=== PATIENT | male | born 2000 | race African-American/Black ===

== ENCOUNTER 2021-02-14 21:39 | Emergency (ER) | payer OTHER ==
[~2021-02-14] VITALS: Ht 182.9 cm; Wt 83.3 kg
--- NOTE | 2021-02-14 22:06 | PHYS DOC ---
Past History Past Surgical History: No Surgical History (PEDRO TOWNSEND APRN) Alcohol Use: None (PEDRO TOWNSEND APRN) General Adult EDM: Chief Complaint: CHEST PAIN HPI: HPI: Patient is a 20-year-old male who presents to the emergency department for chest tightness. Patient reports that he was laying on his back doing a hamstring exercise and when he felt a pulling in his chest with shortness of breath. He states that he had his friend stretch his arms out and his symptoms improved. Patient rates his pain 6 out of 10. It is located midsternally. It is worse with movement. It is reproducible. Patient is also reporting shortness of breath. No treatment prior to arrival. No history. No medications at home. No known allergies. Patient denies nausea, vomiting, fever, dizziness. (PEDRO TOWNSEND APRN) Review of Systems: Review of Systems: 14 body systems of the review of systems have been reviewed. See HPI for pertinent positive and negative responses, otherwise all other systems are negative, nonpertinent or noncontributory (PEDRO TOWNSEND APRN) Allergies: Allergies: Allergies Coded Allergies Type Severity Reaction Last Updated Verified No Known Drug Allergies 02/14/21 No (PEDRO TOWNSEND APRN) Physical Exam: PE: Constitutional: Well developed, well nourished, no acute distress, non-toxic appearance. [] HENT: Normocephalic, atraumatic, bilateral external ears normal, oropharynx mo ist, no oral exudates, nose normal. [] Eyes: PERRL, EOMI, conjunctiva normal, no discharge. [] Neck: Normal range of motion, no stridor Cardiovascular:Heart rate regular rhythm, no murmur, midsternal chest pain that is reproducible [] Lungs & Thorax: Bilateral breath sounds clear to auscultation [] Abdomen: Bowel sounds normal, soft, no tenderness, no masses, no pulsatile masses. [] Skin: Warm, dry, no erythema, no rash. [] Back: Normal range of motion Extremities: No tenderness, no cyanosis, no clubbing, ROM intact, no edema. [] Neurologic: Alert and oriented X 3, normal motor function, normal sensory function, no focal deficits noted. [] Psychologic: Affect normal, judgement normal, mood normal. [] (PEDRO TOWNSEND APRN) Current Patient Data: Labs: Laboratory Tests Test 02/14/21 22:07 White Blood Count 5.1 x10^3/uL Red Blood Count 4.81 x10^6/uL Hemoglobin 14.4 g/dL Hematocrit 43.2 % Mean Corpuscular Volume 90 fL Mean Corpuscular Hemoglobin 30 pg Mean Corpuscular Hemoglobin Concent 33 g/dL Red Cell Distribution Width 14.0 % Platelet Count 201 x10^3/uL Neutrophils (%) (Auto) 47 % Lymphocytes (%) (Auto) 37 % Monocytes (%) (Auto) 13 % Eosinophils (%) (Auto) 3 % Basophils (%) (Auto) 0 % Neutrophils # (Auto) 2.4 x10^3uL Lymphocytes # (Auto) 1.9 x10^3/uL Monocytes # (Auto) 0.7 x10^3/uL Eosinophils # (Auto) 0.1 x10^3/uL Basophils # (Auto) 0.0 x10^3/uL Sodium Level 143 mmol/L Potassium Level 3.3 mmol/L Chloride Level 105 mmol/L Carbon Dioxide Level 28 mmol/L Anion Gap 10 Blood Urea Nitrogen 11 mg/dL Creatinine 1.3 mg/dL Estimated GFR (Cockcroft-Gault) 86.0 BUN/Creatinine Ratio 8 Glucose Level 88 mg/dL Calcium Level 8.8 mg/dL Total Bilirubin 0.3 mg/dL Aspartate Amino Transf (AST/SGOT) 40 U/L Alanine Aminotransferase (ALT/SGPT) 31 U/L Alkaline Phosphatase 138 U/L Troponin I Quantitative < 0.017 ng/mL Total Protein 6.9 g/dL Albumin 3.8 g/dL Albumin/Globulin Ratio 1.2 Current Medications Medications (Trade) Dose Ordered Sig/Destinee Route PRN Reason Start Time Stop Time Status Last Admin Dose Admin Ketorolac Tromethamine (Toradol 15mg Vial) 15 mg 1X ONCE IVP 02/14/21 22:15 02/14/21 22:18 DC 02/14/21 22:30 Vital Signs: Vital Signs Date Time Temp Pulse Resp B/P (MAP) Pulse Ox O2 Delivery O2 Flow Rate FiO2 02/14/21 21:55 98.5 59 14 143/63 (89) 100 Room Air (PEDRO TOWNSEND APRN) EKG: EKG: EKG performed by ER staff at 2153 shows sinus rhythm with a heart rate of 57, no STEMI read by Dr. Heller at 2205 [] (PEDRO TOWNSEND APRN) Radiology/Procedures: Radiology/Procedures: []REASON: cp PROCEDURE: CHEST AP ONLY XR CHEST 1V History: Reason: cp / Spl. Instructions: / History: Comparison: None. Findings: No consolidation or pleural effusion. Normal heart size. No pneumothorax. Impression: 1. No acute cardiopulmonary process. Electronically signed by: Keon Herrmann DO (02/14/2021 11:09 PM) [facility] DICTATED AND SIGNED BY: KEON HERRMANN DO DATE: 02/14/212308 CC: EMERGENCY,DEPARTMENT; PEDRO TOWNSEND APRN; PCP,NO ~MTH0 0 (PEDRO TOWNSEND APRN) Heart Score: C/O Chest Pain: Yes HEART Score for Chest Pain: HEART Score for Chest Pain Response (Comments) Value History Slighlty/Non-Suspicious 0 ECG Normal 0 Age < 45 0 Risk Factors No Risk Factors 0 Troponin < Normal Limit 0 Total 0 Risk Factors: Risk Factors: DM, Current or recent (<one month) smoker, HTN, HLP, family hist ory of CAD, obesity. Risk Scores: Score 0 - 3: 2.5% MACE over next 6 weeks - Discharge Home Score 4 - 6: 20.3% MACE over next 6 weeks - Admit for Clinical Observation Score 7 - 10: 72.7% MACE over next 6 weeks - Early Invasive Strategies (PEDRO TOWNSEND APRN) Course & Med Decision Making: Course & Med Decision Making Pertinent Labs and Imaging studies reviewed. (See chart for details) [] Patient presents with midsternal chest tightness that is reproducible and worse with movement that occurred while working out today. Blood work, EKG and chest x-ray performed in the ER to rule out a cardiac cause for his chest pain. Patient's heart score is 0. Patient CBC is unremarkable. CXR negative for acute findings as read by this V[employer] B[employer]LE ASSEMBLER and physician. Patient was noted to have hypokalemia and this was replaced in the emergency department. Patient advised to increase his potassium intake at home by eating green leafy vegetables and bananas. Patient advised to take Tylenol or ibuprofen for his chest pain at home. Is likely that this is chest wall pain as it is worse with movement and reproducible and worse after working out today. Patient advised to follow-up with his primary care provider. I discussed with patient all findings and diagnostic testing as well as the need to follow-up with PCP for further evaluation and treatment or return to the ER if any new or worsening symptoms. Strict return precautions were also discussed at length. Patient voiced understanding and agreement with the plan. Patient is hemodynamically stable at the time of disposition. (PEDRO TOWNSEND APRN) Dragon Disclaimer: Felipe Disclaimer: This electronic medical record was generated, in whole or in part, using a voice recognition dictation system. (PEDRO TOWNSEND APRN) Departure Departure: Impression: Primary Impression: Chest wall pain Disposition: HOME / SELF CARE / HOMELESS Condition: GOOD Referrals: PCP,NO (PCP) Patient Instructions: Chest Wall Pain Additional Instructions: You were seen in the emergency department today for chest pain. As we discussed, it is likely that the symptoms you are experiencing are due to chest wall pain or musculoskeletal pain. Your blood work looked unremarkable, at this time it does not appear that you are having acute coronary syndrome. Your potassium level was noted to be slightly low in the ER. This was replaced with a supplement. At home please make sure that you are eating potassium rich foods like green leafy vegetables and bananas. You can take Tylenol or ibuprofen for your pain at home. Perform stretches. You can also apply heat. Follow-up with your primary care provider tomorrow regarding your ER visit. Return to the emergency department if you develop worsening of your chest pain, shortness of breath, dizziness, intractable nausea or vomiting or any new or worsening concerns. EMERGENCY DEPARTMENT GENERAL DISCHARGE INSTRUCTIONS Thank you for coming to [facility] (ED) today and trusting us with you care. We trust that you had a positivie experience in our Emergency Department. If you wish to speak to the department management, you may call the director at [phone]. YOUR FOLLOW UP INSTRUCTIONS ARE FOLLOWS: 1. Do you have a private Doctor? If you do not have a private doctor, please ask for a resource list of physicians or clinics that may be able to assist you with foll ow up care. 2. The Emergency Physician has interpreted your x-rays. The X-Ray specialist will also review them. If there is a change in the findings, you will be notified in 48 hours when at all possible. 3. A lab test or culture has been done, your results will be reviewed and you will be notified if you need a change in treatment. ADDITIONAL INSTRUCTIONS AND INFORMATION: 1. Your care today has been supervised by a physician who is specially trained in emergency care. Many problems require more than one evaluation for a complete diagnosis and treatment. We recommend that you schedule your follow up appointment as re commended to ensure complete treatment of you illness or injury. If you are unable to obtain follow up care and continue to have a problem, or if your condition worsens, we recommend that you return to the ED. 2. We are not able to safely determine your condition over the phone nor are we able to give sound medical advice over the phone. For these safety reasons, if you call for medical advice we will ask you to come to the ED for further evaluation. 3. If you have any questions regarding these discharge instructions please call the ED at [phone]. SAFETY INFORMATION: In the interest of safety, wellness, and injury prevention; we encourage you to wear your sealbelt, if you smoke; quite smoking, and we encourage family to use a protective helmet for bicycling and other sporting events that present an increased risk for head injury. IF YOUR SYMPTOMS WORSEN OR NEW SYMPTOMS DEVELOP, OR YOU HAVE CONCERNS ABOUT YOUR CONDITION; OR IF YOUR CONDITION WORSENS WHILE YOU ARE WAITING FOR YOUR FOLLOW UP APPOINTMENT; EITHER CONTACT YOUR PRIMARY CARE DOCTOR, THE PHYSICIAN WHOSE NAME AND NUMBER YOU WERE GIVEN, OR RETURN TO THE ED IMMEDIATELY. Attending Signature Attending Signature I have reviewed the PA/V[employer] B[employer] ASSEMBLER's note and plan of care. I was available for consultation as needed during the patient's visit in the emergency department. I agree with the clinical impression, plan, and disposition. (DIANA HELLER DO) PEDRO TOWNSEND APRN Feb 14, 2021 22:05 DIANA HELLER DO Feb 15, 2021 01:45
[2021-02-14] MEDS ORDERED: KETOROLAC 15 MG/ML VIAL. IVP ONE (22:15)
[2021-02-14 22:31] LABS: BASO % 0 % (0-3); EOS # 0.1 x10^3/uL (0.0-0.7); EOS % 3 % (0-3); HEMATOCRIT 43.2 % (39.0-53.0); HEMOGLOBIN 14.4 g/dL (13.0-17.5); LYMPH # 1.9 x10^3/uL (1.0-4.8); LYMPH % 37 % (24-48); MEAN CORPUSCULAR HEMOGLOBIN 30 pg (25-35); MEAN CORPUSCULAR HGB CONC 33 g/dL (31-37); MEAN CORPUSCULAR VOLUME 90 fL (79-100); MONO # 0.7 x10^3/uL (0.0-1.1); MONO % 13 % (0-9); NEUT # 2.4 x10^3uL (1.8-7.7); NEUT % 47 % (31-73); PLATELET COUNT 201 x10^3/uL (140-400); RED BLOOD COUNT 4.81 x10^6/uL (4.30-5.70); WHITE BLOOD COUNT 5.1 x10^3/uL (4.0-11.0)
[2021-02-14 22:40] LABS: CALCIUM 8.8 mg/dL (8.5-10.1); CREATININE 1.3 mg/dL (0.7-1.3); POTASSIUM 3.3 mmol/L (3.5-5.1)
[2021-02-14 22:45] LABS: ALBUMIN 3.8 g/dL (3.4-5.0); ALBUMIN/GLOBULIN RATIO 1.2 (1.0-1.7); TOTAL BILIRUBIN 0.3 mg/dL (0.2-1.0); TOTAL PROTEIN 6.9 g/dL (6.4-8.2)
--- NOTE | 2021-02-14 23:12 | RAD ---
XR CHEST 1V History: Reason: cp / Spl. Instructions: / History: Comparison: None. Findings: No consolidation or pleural effusion. Normal heart size. No pneumothorax. Impression: 1. No acute cardiopulmonary process. Electronically signed by: Keon Herrmann DO (02/14/2021 11:09 PM) [facility]
[2021-02-14] MEDS ORDERED: POTASSIUM CHLORIDE 20 MEQ TABLET.ER. PO ONE (23:30)
[2021-02-14 23:31] VITALS: BP 100/48
--- NOTE | 2021-02-15 00:37 | EKG ---
[address] [address] Test Date: 2021-02-14 Test Time: 21:53:19 Pat Name: EDWIN SUTHERLAND Department: Room: Gender: M [employer] Immigration: : 2000 Requested By: PEDRO TOWNSEND Order Number: [id number] Reading MD: Oscar Donald MD Measurements Intervals [place] Rate: 57 P: 43 MS: 134 QRS: 73 QRSD: 94 T: 43 QT: 468 QTc: 459 Interpretive Statements SINUS RHYTHM INCOMPLETE RIGHT BUNDLE BRANCH BLOCK Electronically Signed On 02-20-2021 11:47:50 CDT by Oscar Donald MD
== END 2021-02-14 23:30 | disposition home or self-care (01) ==
LOC: ER 21:39
DX: R07.89 Other chest pain (principal)
CPT/HCPCS: 36415; 71045; 80053; 84484; 85025; 93005; 96374; 99285; J1885; 99284-25